=== PATIENT | female | born 1955 | race Caucasian/White ===

== ENCOUNTER → 2021-02-08 | Outpatient (CLI) | payer MEDICARE ==
[~2021-02-08] MED LIST: ALLERGY RELIEF180 MG PO; ATIVAN1 MG PO; AUGMENTIN 875-1 EACH PO; CALTRATE 600MG600 MG PO; CATAPRES 0.1MG0.1 MG PO; CURCUMIN250 GM PO; FLONASE 0.05% N16 GM; GABAPENTIN600 MG PO; HYDROXYZINE HCL25 MG PO; INDERAL TAB 1010 MG PO; KEFLEX500 MG PO; LEVOTHYROXINE50 MCG PO; LOVENOX40 MG/0.4 SQ; MAGNESIUM250 M1 PO; NORCO 7.5-3251 EACH PO; OCUVITE ADULT1 EAC1 PO; PERCOCET 5-3251 EACH PO; PHENERGAN 25 MG25 M1 PO; PROAIR HFA8.5 GM INH; REMERON30 MG PO; SYMBICORT 16010.2 GM INH; VITAMIN C500 M1 PO; VITAMIN D250000 UNIT PO; XYZAL5 MG PO; ZANAFLEX4 MG PO
== END ==
LOC: KOH-I 10:57
DX: S82.891D Other fracture of right lower leg, subsequent encounter for closed fracture with routine healing (principal); M79.671 Pain in right foot; Z98.890 Other specified postprocedural states; X58.XXXD Exposure to other specified factors, subsequent encounter
CPT/HCPCS: 73610; 73630

== ENCOUNTER → 2021-02-23 | Outpatient (CLI) | payer MEDICARE ==
[2021-02-23 10:22] LABS: HEMOGLOBIN 15.4 gm/dl (12.3-15.3); RED BLOOD COUNT 4.73 M/UL (4.00-5.10); WHITE BLOOD COUNT 9.7 K/UL (4.5-11.0)
[2021-02-23 10:42] LABS: BUN/CREATININE RATIO 17 (0-10)
== END ==
LOC: OPSV2 09:00
PROVIDERS: Podiatrist Foot & Ankle Surgery
DX: Z01.812 Encounter for preprocedural laboratory examination (principal); S82.891A Other fracture of right lower leg, initial encounter for closed fracture
CPT/HCPCS: 36415; 80048; 85025

== ENCOUNTER → 2021-02-28 | Day surgery (SDC) | payer MEDICARE | END | disposition home or self-care (01) | LOC: OR 07:45 | DX: T84.84XA Pain due to internal orthopedic prosthetic devices, implants and grafts, initial encounter (principal); J44.9 Chronic obstructive pulmonary disease, unspecified; I10 Essential (primary) hypertension; E03.9 Hypothyroidism, unspecified; F17.219 Nicotine dependence, cigarettes, with unspecified nicotine-induced disorders; M19.90 Unspecified osteoarthritis, unspecified site; F41.0 Panic disorder [episodic paroxysmal anxiety]; Z88.5 Allergy status to narcotic agent; X58.XXXA Exposure to other specified factors, initial encounter | CPT/HCPCS: 73600; 76000; J0171; J0690; J1100; J2001; J2250; J2405; J2704; J2795; J3010; J3370; J7120 ==